=== PATIENT | female | born 1975 | race Caucasian/White ===

== ENCOUNTER 2016-09-09 13:23 | Inpatient (IN) | payer OTHER ==
[~2016-09-09] VITALS: Ht 157.5 cm; Wt 112.5 kg
[2016-09-09 17:02] LABS: CALCIUM 8.7 mg/dL (8.5-10.1); CARBON DIOXIDE 26.4 mmol/L (21-32); CHLORIDE SERUM 97 mmol/L (98-107); CREATININE SERUM 0.8 mg/dL (0.6-1.0); GFR1 > 60 mL/min; GLUCOSE SERUM 367 mg/dL (74-106); POTASSIUM SERUM 3.7 mmol/L (3.5-5.1); SODIUM SERUM 132 mmol/L (136-145)
[2016-09-09 17:06] LABS: ALKALINE PHOSPHATASE 97 U/L (46-116); ALT/SGPT 28 U/L (14-59); AST/SGOT 13 U/L (15-37); BILIRUBIN TOTAL 0.5 mg/dL (0.20-1.00); CHOLESTEROL 176 mg/dL (<200); TOTAL PROTEIN, SERUM 8.6 g/dL (6.4-8.2)
[2016-09-09 17:22] LABS: BASOPHIL % 0.2 % (0-2); PLATELET COUNT 335 x10^3mcL (130-400); RED CELL DISTRIBUTION WIDTH 13.5 % (11.5-14.5)
[2016-09-09 17:31] LABS: microscopic required? NO
[2016-09-09 17:35] LABS: UA SPECIFIC GRAVITY <=1.005 (1.005-1.035); urine erythrocyte NEGATIVE (NEGATIVE)
[2016-09-09 17:39] LABS: rbc morphology (normal/abnorm) NORMAL (NORMAL)
[2016-09-09] MEDS ORDERED: METFORMIN HCL500 MG PO (18:40)
[2016-09-09 20:57] VITALS: BP 133/67
[2016-09-09 22:01] LABS: T3 TOTAL 1.06 ng/mL
[2016-09-09 22:22] LABS: FREE T4 1.15 ng/dL (0.76-1.46); FREE THYROXINE INDEX 2.8 ug/dL (1.4-4.5); T4(THYROXINE) 9.1 ug/dL (4.7-13.3)
[2016-09-09 22:46] LABS: CHOLESTEROL/HDL RATIO 3.4; MAGNESIUM 1.9 mg/dL (1.8-2.4); PHOSPHOROUS 3.1 mg/dL (2.5-4.9)
[2016-09-10] VITALS (7 sets, daily range): BP systolic 108–125; BP diastolic 65–80; Ht 157.5 cm; Wt 112.5 kg
[2016-09-10] MEDS ORDERED: SIMVASTATIN20 M1 PO (03:44)
[2016-09-10] MEDS ORDERED: VITAMIN D32000 I2 PO (03:45)
[2016-09-10 07:17] LABS: BASOPHIL % 0.3 % (0-2); PLATELET COUNT 281 x10^3mcL (130-400); RED CELL DISTRIBUTION WIDTH 13.4 % (11.5-14.5)
[2016-09-10 07:33] LABS: CALCIUM 7.6 mg/dL (8.5-10.1); CARBON DIOXIDE 23.8 mmol/L (21-32); CHLORIDE SERUM 104 mmol/L (98-107); CREATININE SERUM 0.7 mg/dL (0.6-1.0); GFR1 > 60 mL/min; GLUCOSE SERUM 238 mg/dL (74-106); MAGNESIUM 1.6 mg/dL (1.8-2.4); PHOSPHOROUS 2.6 mg/dL (2.5-4.9); POTASSIUM SERUM 3.9 mmol/L (3.5-5.1); SODIUM SERUM 135 mmol/L (136-145)
[2016-09-11 05:19] VITALS: BP 116/74
[2016-09-11 06:40] LABS: BASOPHIL % 0.2 % (0-2); PLATELET COUNT 323 x10^3mcL (130-400); RED CELL DISTRIBUTION WIDTH 13.1 % (11.5-14.5)
[2016-09-11 06:46] LABS: CHLORIDE SERUM 103 mmol/L (98-107); CREATININE SERUM 0.7 mg/dL (0.6-1.0); GFR1 > 60 mL/min; GLUCOSE SERUM 244 mg/dL (74-106); POTASSIUM SERUM 4.2 mmol/L (3.5-5.1); SODIUM SERUM 136 mmol/L (136-145)
[2016-09-11 10:21] VITALS: BP 117/77
[2016-09-11 13:00] VITALS: BP 133/86
[2016-09-11 16:26] VITALS: BP 133/86
[2016-09-11] MEDS ORDERED: DOXYCYCLINE HY100 MG PO (17:02)
[2016-09-11 17:22] VITALS: BP 134/77
[2016-09-11] MEDS ORDERED: DOXYCYCLINE MO100 MG PO (17:58)
[2016-09-11] MEDS ORDERED: LAC PO (17:58)
== END 2016-09-11 18:48 | disposition home or self-care (01) | DRG 760 ==
LOC: ED 13:23 → DU 18:49
PROVIDERS: Emergency Medicine; Obstetrics & Gynecology; ADMIT Family Medicine
PROC: 0U9L0ZZ Drainage of Vestibular Gland, Open Approach (ICD-10-PCS; principal; 2016-09-10 19:00)
DX: N75.0 Cyst of Bartholin's gland (principal); E44.0 Moderate protein-calorie malnutrition; Z68.42 Body mass index [BMI] 45.0-49.9, adult; E87.1 Hypo-osmolality and hyponatremia; E11.65 Type 2 diabetes mellitus with hyperglycemia; E87.8 Other disorders of electrolyte and fluid balance, not elsewhere classified; E66.01 Morbid (severe) obesity due to excess calories; E78.1 Pure hyperglyceridemia; E83.42 Hypomagnesemia; I10 Essential (primary) hypertension; Z79.84 Long term (current) use of oral hypoglycemic drugs; Z90.49 Acquired absence of other specified parts of digestive tract
CPT/HCPCS: 82962; 83880; 84439; J0690; J1815; J1885; J2270; J2405; J2704; J3010; J3490; J7030; J7120; Q0092